=== PATIENT | female | born 1965 | race Caucasian/White ===

== ENCOUNTER 2016-10-12 17:40 | Observation (INO) | payer OTHER ==
[~2016-10-12] VITALS: Ht 165.1 cm; Wt 112.0 kg
[~2016-10-12 17:40] MED LIST: MOTRIN600 MG PO; PERCOCET 5/31 TABLET PO
[2016-10-12 18:39] LABS: HEMATOCRIT 40.1 % (36.0-46.0); MCH 30.8 PG (29.0-34.0); MCHC 34.2 G/DL (30.0-36.0); MCV 90.1 FL (83-99); MEAN PLAT.VOLUME 10.4 uM^3 (9.5-12.4); PLATELET COUNT 261 K/uL (156-360); RBC DIS.WIDTH-CV 12.1 % (11.8-14.6); RBC DIS.WIDTH-SD 39.7 % (39-53); RED BLOOD COUNT 4.45 M/uL (3.80-5.20); WHITE BLOOD COUNT 6.6 K/uL (4.1-10.2)
[2016-10-12 18:55] LABS: CHLORIDE 105 mEq/L (99-109); POTASSIUM 4.1 mEq/L (3.7-5.4); SODIUM 138 mEq/L (136-147)
[2016-10-12 18:56] LABS: PROTHROMBIN TIME 10.5 (9.2-11.2); PTT 28.7 (25-32)
[2016-10-12 18:57] LABS: GLUCOSE 109 mg/dL (70-99)
[2016-10-12 18:58] LABS: ANION GAP 9 MEQ/L (2-14)
[2016-10-12 18:59] LABS: TOTAL BILIRUBIN 0.5 mg/dL (0.0-1.0)
[2016-10-12 19:00] LABS: ALKALINE PHOSPHATASE 73 IU/L (3-129)
[2016-10-12 19:01] LABS: GFR ESTIMATE (CALCULATED) > 59 mL/min/
[2016-10-12 19:02] LABS: UREA NITROGEN (BUN) 12 mg/dL (9-23)
[2016-10-12] MEDS ORDERED: PHENTERMINE HCL30 MG PO (23:24)
[2016-10-12] MEDS ORDERED: CYCLOBENZAPRINE10 MG PO (23:24)
[2016-10-12] MEDS ORDERED: BUTALB-APAP-CA1 EACH PO (23:24)
[2016-10-12] MEDS ORDERED: HYOSCYAMINE0.375 MG PO (23:25)
[2016-10-12] MEDS ORDERED: CYMBALTA60 MG PO (23:25)
[2016-10-12] MEDS ORDERED: ADDERALL30 MG PO ×2 (23:25)
[2016-10-12] MEDS ORDERED: VITAMIN D31000 UNIT PO (23:25)
[2016-10-12] MEDS ORDERED: SUMATRIPTAN SU100 MG PO (23:25)
[2016-10-12] MEDS ORDERED: ULTRAM50 MG PO (23:25)
[2016-10-13 00:01] VITALS: BP 113/60
[2016-10-13 04:10] VITALS: BP 132/68
[2016-10-13 05:35] LABS: HEMATOCRIT 35.9 % (36.0-46.0); MCH 31.2 PG (29.0-34.0); MCV 91.8 FL (83-99); MEAN PLAT.VOLUME 10.6 uM^3 (9.5-12.4); PLATELET COUNT 230 K/uL (156-360); RBC DIS.WIDTH-CV 12.3 % (11.8-14.6); RBC DIS.WIDTH-SD 40.8 % (39-53); RED BLOOD COUNT 3.91 M/uL (3.80-5.20); WHITE BLOOD COUNT 9.5 K/uL (4.1-10.2)
[2016-10-13 05:55] LABS: ALKALINE PHOSPHATASE 70 IU/L (3-129); ANION GAP 9 MEQ/L (2-14); CHLORIDE 105 MEQ/L (99-109); GFR ESTIMATE (CALCULATED) > 59 mL/min/; GLUCOSE 140 mg/dL (70-99); POTASSIUM 3.9 MEQ/L (3.7-5.4); SAMPLE HEMOLYSIS CHECK 0; SAMPLE ICTERIC CHECK 0; SAMPLE LIPEMIA CHECK 0; SODIUM 138 MEQ/L (136-147); TOTAL BILIRUBIN 0.6 MG/DL (0.0-1.0); UREA NITROGEN (BUN) 12 mg/dL (9-23)
[2016-10-13 08:12] VITALS: BP 111/70
[2016-10-13 11:51] VITALS: BP 127/81
[2016-10-13] MEDS ORDERED: ENDOCET 5-3251 EACH PO (15:09)
[2016-10-13 15:22] VITALS: BP 133/77
== END 2016-10-13 19:25 | disposition home or self-care (01) ==
LOC: EME 17:40 → 3EAST 22:59 → EDOF 22:59 → 3EAST 23:55
PROVIDERS: Emergency Medicine; Internal Medicine
DX: S82.392A Other fracture of lower end of left tibia, initial encounter for closed fracture (principal); S82.832A Other fracture of upper and lower end of left fibula, initial encounter for closed fracture; S92.155A Nondisplaced avulsion fracture (chip fracture) of left talus, initial encounter for closed fracture; W10.9XXA Fall (on) (from) unspecified stairs and steps, initial encounter; S93.401A Sprain of unspecified ligament of right ankle, initial encounter; F90.9 Attention-deficit hyperactivity disorder, unspecified type; F32.9 Major depressive disorder, single episode, unspecified
CPT/HCPCS: 73600; 73610; 73700; 80053; 85027; 85610; 85730; 99281; 99285; G0378; G8978 GP CI; G8979 GP CH; J1644; J2270; J2405; J3010; J7030

== ENCOUNTER 2016-10-26 09:19 | Day surgery (SDC) | payer OTHER ==
[~2016-10-26] VITALS: Ht 165.1 cm; Wt 114.5 kg
[~2016-10-26 09:19] MED LIST changes: +ADDERALL30 MG PO; +BUTALB-APAP-CA1 EACH PO; +CYCLOBENZAPRINE10 MG PO; +CYMBALTA60 MG PO; +DAILY VALUE1 EACH PO; +ENDOCET 5-3251 EACH PO; +HYOSCYAMINE0.375 MG PO; +PHENTERMINE HCL30 MG PO; +SUMATRIPTAN SU100 MG PO; +ULTRAM50 MG PO; +VITAMIN D31000 UNIT PO
[2016-10-26 09:54] VITALS: BP 107/70
[2016-10-26 11:26] LABS: METH RESISTANT S AUREUS PCR POSITIVE (NEGATIVE)
[2016-10-26 11:27] LABS: PROBE CHECK PASS
[2016-10-26 17:13] VITALS: BP 127/89
[2016-10-26 20:00] VITALS: BP 102/60
[2016-10-27 00:40] VITALS: BP 117/71
[2016-10-27 04:24] VITALS: BP 128/68
[2016-10-27 07:55] VITALS: BP 188/72
[2016-10-27 11:15] VITALS: BP 116/68
[2016-10-27 17:20] VITALS: BP 117/66
[2016-10-28 00:22] VITALS: BP 105/68
[2016-10-28 07:51] VITALS: BP 130/80
[2016-10-28 15:35] VITALS: BP 134/78
[2016-10-28 23:34] VITALS: BP 123/77
[2016-10-29 08:20] VITALS: BP 112/74
[2016-10-30 00:20] VITALS: BP 116/79
[2016-10-30 08:04] VITALS: BP 120/83
[2016-10-30 15:35] VITALS: BP 123/74
[2016-10-30 23:31] VITALS: BP 123/85
[2016-10-31 07:23] VITALS: BP 123/75
[2016-10-31 15:22] VITALS: BP 128/79
[2016-11-01 00:08] VITALS: BP 124/74
[2016-11-01 08:09] VITALS: BP 122/61
[2016-11-01] MEDS ORDERED: GABAPENTIN300 MG PO (09:39)
[2016-11-01] MEDS ORDERED: MORPHINE SULFAT15 MG PO (09:39)
[2016-11-01 15:35] VITALS: BP 121/77
== END 2016-11-01 16:59 | disposition home or self-care (01) ==
LOC: SDC 09:19 → 3EAST 15:25 → 2SOUTH 15:25 → SDC 15:57 → 3EAST 16:38
PROVIDERS: Orthopaedic Surgery
PROC: 0QSH04Z Reposition Left Tibia with Internal Fixation Device, Open Approach (ICD-10-PCS; principal; 2016-10-26)
DX: T84.84XA Pain due to internal orthopedic prosthetic devices, implants and grafts, initial encounter (principal); S82.832A Other fracture of upper and lower end of left fibula, initial encounter for closed fracture; W10.9XXA Fall (on) (from) unspecified stairs and steps, initial encounter; Y93.9 Activity, unspecified; Y92.89 Other specified places as the place of occurrence of the external cause; Y99.0 Civilian activity done for income or pay; K58.9 Irritable bowel syndrome, unspecified; M79.7 Fibromyalgia; F90.9 Attention-deficit hyperactivity disorder, unspecified type; F41.9 Anxiety disorder, unspecified; Z88.0 Allergy status to penicillin
CPT/HCPCS: 73610; 76000; 87641; 94799; 97530 GP; C1713; G0378; G8978 GP CM; G8979 GP CK; G8980 CJ; G8987 GO CM; G8988 GO CL; G8989 GO CM; J0330; J0690; J1100; J1170; J2250; J2270; J2405; J3010; S0020